=== PATIENT | female | born 1990 | race Caucasian/White ===

== ENCOUNTER 2019-08-11 17:57 | Emergency (ER) | payer BC, OTHER ==
[2019-08-11 18:36] VITALS: BP 143/90; PULSE 79
[2019-08-11] MEDS ORDERED: Ketorolac 60 MG/2 ML SDV IM ONE (19:43)
--- NOTE | 2019-08-11 19:53 | EDM.PDOC ---
ED HPI GENERAL MEDICAL PROBLEM - General Chief Complaint: Lower Extremity Injury/Pain Stated Complaint: LT BIG TOE Time Seen by Provider: 08/11/19 18:57 Source of Information: Reports: Patient, RN Notes Reviewed History Limitations: Reports: No Limitations - History of Present Illness INITIAL COMMENTS - FREE TEXT/NARRATIVE: Patient is a 29-year-old female who presents to the ED for the evaluation of a left great toe injury. 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 She was barefoot at this time. She notes that she had pain in her toe right after this accident. She is not able to move the toe. She is not having any pain in her foot or ankle. Patient did not take any sort of pain medications for this. She denies any numbness or tingling distal to the injury. Patient states this is a 10 out of 10 on the pain scale today. Left Toe-Hailux Pain Score (Numeric/FACES): 10 - Related Data Allergies Allergy/AdvReac Type Severity Reaction Status Date / Time amoxicillin Allergy Rash Verified 05/16/16 03:25 BETALACTAMASEIN [LORABID] Allergy Rash Verified 05/16/16 03:25 Penicillins Allergy Rash Verified 05/16/16 03:25 Home Meds: Home Meds Levonorgestrel [Mirena] 1 device IUTERINE ONETIME 03/24/14 [History] Acetaminophen/oxyCODONE [Percocet 325-5 MG] 1 each PO Q6H PRN #20 tab 08/11/19 [ Rx] Ondansetron [Zofran ODT] 4 mg PO Q8H PRN #10 tab.dis 08/11/19 [Rx] Past Medical History HEENT History: Reports: Allergic Rhinitis Other HEENT History: Seasonal allergies Other Gastrointestinal History: Umbilical hernia - Past Surgical History HEENT Surgical History: Reports: Oral Surgery GI Surgical History: Reports: Hernia Repair/Other Social & Family History - Family History Family Medical History: Noncontributory - Tobacco Use Smoking Status *Q: Never Smoker - Caffeine Use Caffeine Use: Reports: Coffee - Recreational Drug Use Recreational Drug Use: No - Living Situation & Occupation Living situation: Reports: , with Spouse, with Family Occupation: Employed Review of Systems - Review of Systems Review Of Systems: Comprehensive ROS is negative, except as noted in HPI. Musculoskeletal: Reports: Joint Pain (Left great toe) Skin: Denies: Bruising Neurological: Denies: Numbness, Tingling ED EXAM, GENERAL - Physical Exam Exam: See Below Exam Limited By: No Limitations General Appearance: Alert, WD/WN, No Apparent Distress Respiratory/Chest: No Respiratory Distress, Lungs Clear, Normal Breath Sounds, No Accessory Muscle Use, Chest Non-Tender Cardiovascular: Normal Peripheral Pulses, Regular Rate, Rhythm, No Murmur Peripheral Pulses: 3+: Dorsalis Pedis (L), Dorsalis Pedis (R) Extremities: Normal Inspection, Normal Capillary Refill, Limited Range of Motion (of left toe d/t pain). No: Joint Swelling Neurological: Alert, Oriented, Normal Cognition, No Motor/Sensory Deficits Psychiatric: Normal Affect, Normal Mood Skin Exam: Warm, Dry, Intact, Normal Color, No Rash Course - Vital Signs Last Recorded V/S: Last Vital Signs Temp 98.7 F 08/11/19 18:34 Pulse 79 08/11/19 18:34 Resp 20 08/11/19 18:34 BP 143/90 H 08/11/19 18:34 Pulse Ox 100 08/11/19 18:34 - Orders/Labs/Meds Orders: Active Orders 24 hr Category Date Time Status Toes Great Toe Lt TA [CR] Stat Exams 08/11/19 18:36 Taken Meds: Medications Discontinued Medications Generic Name Dose Route Start Last Admin Trade Name Mikaelq PRN Reason Stop Dose Admin Ketorolac Tromethamine 60 mg 08/11/19 19:43 08/11/19 20:04 Toradol IM 08/11/19 19:44 60 mg ONETIME ONE Administration - Re-Assessments/Exams Free Text/Narrative Re-Assessment/Exam: 08/11/19 19:52 Patient presents to the ED for the evaluation of a left great toe injury. X- rays were done, and demonstrates a slightly angulated nondisplaced fracture of the first proximal metatarsal of the left great toe. Patient will be given 60 mg IM Toradol for initial management, with a prescription fo Percocet as needed for further pain relief. She will also get some Zofran, she states she can get quite nauseous on opioid pain medications. 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 Departure - Departure Time of Disposition: 19:55 Disposition: Home, Self-Care 01 Condition: Fair Clinical Impression: Metatarsal bone fracture Qualifiers: Encounter type: initial encounter Metatarsal bone: first Fracture type: closed Fracture alignment: nondisplaced Laterality: left Qualified Code(s): S92.315A - Nondisplaced fracture of first metatarsal bone, left foot, initial encounter for closed fracture - Discharge Information *PRESCRIPTION DRUG MONITORING PROGRAM REVIEWED*: No *COPY OF PRESCRIPTION DRUG MONITORING REPORT IN PATIENT PANCHO: No Prescriptions: Acetaminophen/oxyCODONE [Percocet 325-5 MG] 1 each PO Q6H PRN #20 tab PRN Reason: Pain Ondansetron [Zofran ODT] 4 mg PO Q8H PRN #10 tab.dis PRN Reason: Nausea Instructions: Metatarsal Fracture Referrals: PCP,None [Primary Care Provider] - Forms: ED Department Discharge Additional Instructions: You have been evaluated in the ED for your left great toe injury. Your x-ray demonstrated a non-displaced fracture of your Left great toe, this is slightly angulated, you may benefit from having a surgical pin placed. Please use ice as tolerated to the affected area. Elevate the area as much as possible to help relieve swelling. You would benefit from keeping the left great toe juana taped to the next toe as well to help provide support. You were given a paper prescription for a knee scooter, that you may obtain at the home medical store in [facility] located near [facility] or the [employer] restaurant. You may take Tylenol 500 mg or ibuprofen 600mg q6 hrs for pain relief. Please do so until you have a tolerable level of pain with activity. Do not exceed 4000mg Tylenol, Do not exceed 3200mg ibuprofen in a 24 hour time period. You were given a prescription for a strong pain medication, oxycodone/ acetaminophen 5/325, please take 1/2-1 tab every 6 hours as needed for pain not relieved by Tylenol or ibuprofen alone. Please note this does contain Tylenol in it, so do not take more than 4000 mg in a 24-hour time span. These medications can be addictive, so please take as few as possible to achieve adequate pain control. These meds can also be quite constipating, recommend that you increase your oral fluid intake and take a stool softener like MiraLAX while taking these medications. You were also given a prescription for antinausea medications to take if you should need the opioid pain medication, please feel free to fill these if you feel you need them otherwise you do not need to fill these at the pharmacy. Please call Ortho for follow-up and further evaluation, your images have been electronically sent to the [facility] located in [facility], their telephone number is [phone]. Please call and set up an appointment as soon as possible for further management. Please return to ED if your symptoms should change or worsen. Sepsis Event Note - Evaluation Sepsis Screening Result: No Definite Risk - Focused Exam Vital Signs: Vital Signs Temp Pulse Resp BP Pulse Ox 08/11/19 18:34 98.7 F 79 20 143/90 H 100 Date Exam was Performed: 08/11/19 Time Exam was Performed: 21:11 - My Orders Last 24 Hours: My Active Orders 08/11/19 18:36 Toes Great Toe Lt TA [CR] Stat - Assessment/Plan Last 24 Hours: My Active Orders 08/11/19 18:36 Toes Great Toe Lt TA [CR] Stat
--- NOTE | 2019-08-12 07:15 | CR ---
Left first toe: Four views centered to the left first toe were obtained. Comparison: No previous first toe study or foot exam. Fracture is identified within the mid shaft of the proximal phalanx of the first toe. Slight displacement and minimal angulation is noted. Soft tissue swelling is noted. No additional abnormality is seen. Impression: 1. First toe fracture as noted above. Diagnostic code #3 This report was dictated in Mountain Standard Time
== END 2019-08-11 20:20 | disposition home or self-care (01) ==
LOC: JD.ED 17:57
DX: S92.315A Nondisplaced fracture of first metatarsal bone, left foot, initial encounter for closed fracture (principal); Z88.1 Allergy status to other antibiotic agents; Z88.0 Allergy status to penicillin; X58.XXXA Exposure to other specified factors, initial encounter
CPT/HCPCS: 73660; 96372; 99283; J1885

== ENCOUNTER 2021-08-04 11:08 | Emergency (ER) | payer SELFPAY ==
[2021-08-04 11:38] VITALS: BP 143/97; PULSE 66
--- NOTE | 2021-08-04 12:12 | EDM.PDOC ---
ED HPI GENERAL MEDICAL PROBLEM - General Chief Complaint: General Stated Complaint: DULL HEADACHES/NAUSEA/HEAD INJURY Time Seen by Provider: 08/04/21 11:36 Source of Information: Reports: Patient, RN Notes Reviewed History Limitations: Reports: No Limitations - History of Present Illness INITIAL COMMENTS - FREE TEXT/NARRATIVE: Patient is a 31-year-old female who presents to the ER for evaluation of her head and neck injury. Patient states that she had some new slippers on , and was going down her wood stairs at home, when she slipped on the wet stairs, and struck the base of her skull/top of her neck on the edge of a wooden stair. She was able to catch herself after that and did not fall down any more stairs. She states that since then she has had some nausea, light sensitivity, head and neck pain that seems to start at the base of the skull and radiate in a bandlike fashion around her head. Patient denies any chance of as she got her menses today. She is concerned about the possibility of any sort of fractures or bleeds, and is requesting head CT for ongoing management. Patient is a sports assistant baseball coach, and has been instructed on signs of concussion, and she is fairly certain that she has a concussion but just wanted to make sure. Patient denies any other sick-like symptoms, fever/chills, cough/shortness of breath, vomiting/diarrhea. Headache Pain Score (Numeric/FACES): 3 - Related Data Allergies Allergy/AdvReac Type Severity Reaction Status Date / Time amoxicillin Allergy Rash Verified 08/04/21 11:39 BETALACTAMASEIN [LORABID] Allergy Rash Verified 08/04/21 11:39 Penicillins Allergy Rash Verified 08/04/21 11:39 Home Meds: Home Meds . [No Known Home Meds] 08/04/21 [History] Past Medical History HEENT History: Reports: Allergic Rhinitis Other HEENT History: Seasonal allergies Other Gastrointestinal History: Umbilical hernia - Past Surgical History HEENT Surgical History: Reports: Oral Surgery GI Surgical History: Reports: Hernia Repair/Other Other GI Surgeries/Procedures: Umbilical hernia repair Social & Family History - Family History Family Medical History: No Pertinent Family History - Tobacco Use Tobacco Use Status *Q: Never Tobacco User Second Hand Smoke Exposure: No - Caffeine Use Caffeine Use: Reports: Coffee - Recreational Drug Use Recreational Drug Use: No - Living Situation & Occupation Living situation: Reports: , with Spouse, with Family Occupation: Employed ED ROS GENERAL - Review of Systems Review Of Systems: Comprehensive ROS is negative, except as noted in HPI. ED EXAM, GENERAL - Physical Exam Exam: See Below Exam Limited By: No Limitations General Appearance: Alert, WD/WN, No Apparent Distress Eye Exam: Bilateral Eye: EOMI, Normal Inspection, PERRL Ears: Normal External Exam, Normal Canal, Hearing Grossly Normal, Normal TMs Neck: Normal Inspection, Supple, Tender Midline (slight to proximal midline neck) Respiratory/Chest: No Respiratory Distress, Lungs Clear, Normal Breath Sounds, No Accessory Muscle Use, Chest Non-Tender Cardiovascular: Normal Peripheral Pulses, Regular Rate, Rhythm, No Edema Peripheral Pulses: 2+: Radial (L), Radial (R) Extremities: Normal Inspection, Normal Capillary Refill Neurological: Alert, Oriented, Normal Cognition, No Motor/Sensory Deficits Psychiatric: Normal Affect, Normal Mood Skin Exam: Warm, Dry, Intact, Normal Color, No Rash Course - Vital Signs Last Recorded V/S: Last Vital Signs Temp 98.0 F 08/04/21 11:38 Pulse 66 08/04/21 11:38 Resp 14 08/04/21 11:38 BP 143/97 H 08/04/21 11:38 Pulse Ox 99 08/04/21 11:38 - Re-Assessments/Exams Free Text/Narrative Re-Assessment/Exam: 08/04/21 12:11 Patient presents to the ER for evaluation of her head injury, due to the nature of her injury we will go ahead and get a head CT and cervical spine CT for ongoing management. 08/04/21 13:[address] are without acute findings. We will have the patient follow conservative management at home and follow-up if not feeling much better in a week to 10 days time. Departure - Departure Time of Disposition: 13:08 Disposition: Home, Self-Care 01 Condition: Good Clinical Impression: Concussion Qualifiers: Encounter type: initial encounter Loss of consciousness presence/duration: without LOC Qualified Code(s): S06.0X0A - Concussion without loss of consciousness, initial encounter - Discharge Information *PRESCRIPTION DRUG MONITORING PROGRAM REVIEWED*: No *COPY OF PRESCRIPTION DRUG MONITORING REPORT IN PATIENT PANCHO: No Instructions: Concussion, Adult, [id number] Referrals: Yancy Engle PA-C [Primary Care Provider] - Forms: ED Department Discharge Additional Instructions: You were evaluated in the ER today for your head injury/neck injury. CT of your head and neck were performed and all were within normal limits. Due to the mechanism of injury it is likely that you received a concussion and you are suffering from postconcussive syndrome. Most of the symptoms you are describing are consistent with this. You have been given an educational handout on concussion, and when to return to ER for more definitive management. You may use Tylenol ibuprofen every 6 hours as needed for ongoing pain or discomfort. You may try some heat packs to the area to see if this helps also relieve some of the discomfort. If you not feeling much better in about 7 to 10 days time, recommend that you get reevaluated by another provider just to make sure that symptoms are not worsening. Do not hesitate to return to the ER at any time symptoms change or worsen. Thank you for allowing and choosing us to be involved in your healthcare needs. Sepsis Event Note (ED) - Focused Exam Vital Signs: Vital Signs Temp Pulse Resp BP Pulse Ox 08/04/21 11:38 98.0 F 66 14 143/97 H 99
--- NOTE | 2021-08-04 13:02 | CT ---
CT cervical spine Technique: Multiple axial sections were obtained from above C1 inferiorly to the top of T2. Reconstructed coronal and sagittal images were obtained. Comparison: No prior cervical spine imaging is available. Findings: Vertebral body heights and disc spaces are maintained. No bony central or bony neural foraminal stenosis is seen. Slight kyphosis is noted. No fracture or subluxation is seen. Impression: 1. Slight kyphosis most likely positional. 2. Nothing acute is appreciated on CT study of the cervical spine. Diagnostic code #1
--- NOTE | 2021-08-04 13:02 | CT ---
Head CT Technique: Multiple axial sections through the brain were obtained. Intravenous contrast was not utilized. Reconstructed coronal and sagittal images were obtained. Comparison: No prior head CT study is available. Findings: Ventricles along with basal cisterns and sulci over the convexities are within normal limits for the patient's age. No abnormal parenchymal densities are seen. No evidence of intracranial hemorrhage is seen. No midline shift or mass-effect is seen. Bone window settings were reviewed. Visualized mastoid sinuses and paranasal sinuses are clear. No acute calvarial abnormality is seen. Impression: 1. No acute intracranial abnormality is seen on noncontrast head CT study. Diagnostic code #1
== END 2021-08-04 13:16 | disposition home or self-care (01) ==
LOC: JD.ED 11:08
DX: S06.0X0A Concussion without loss of consciousness, initial encounter (principal); Z88.0 Allergy status to penicillin; Z88.8 Allergy status to other drugs, medicaments and biological substances; W22.8XXA Striking against or struck by other objects, initial encounter; Y92.009 Unspecified place in unspecified non-institutional (private) residence as the place of occurrence of the external cause
CPT/HCPCS: 70450; 70450-26; 72125; 72125-26; 99284-25